=== PATIENT | male | born 1935 | race Caucasian/White ===

== ENCOUNTER 2017-05-04 12:27 | Emergency (ER) | payer OTHER, MEDICAID ==
[~2017-05-04] VITALS: Ht 170.2 cm; Wt 76.0 kg
[2017-05-04] MEDS ORDERED: TETANUS, DIPHTHERIA, PERTUSSIS VAC/PF 0.5ML (>7YR OLD) IM ONE (13:15)
[2017-05-04] MEDS ORDERED: LIDOCAINE HCL/EPINEPHRINE 1%-EPI 1:100,000 50 ML VIAL INFIL ONE ×2 (14:45→15:15)
[2017-05-04] MEDS ORDERED: LIDOCAINE HCL 1% 20ML VIAL (Pyxis) INJ INFIL ONE (15:15)
[2017-05-04 16:30] VITALS: BP 143/71
== END 2017-05-04 16:45 | disposition home or self-care (01) ==
LOC: ER 13:26
DX: S01.81XA Laceration without foreign body of other part of head, initial encounter (principal); W54.0XXA Bitten by dog, initial encounter; Y93.89 Activity, other specified; Y92.89 Other specified places as the place of occurrence of the external cause; Y99.8 Other external cause status
CPT/HCPCS: 12002; 70450; 90471; 90715; 99284; J3490

== ENCOUNTER 2017-05-07 08:58 | Emergency (ER) | payer OTHER, MEDICAID ==
[~2017-05-07] VITALS: Ht 165.1 cm; Wt 73.0 kg
[2017-05-07 09:08] VITALS: BP 154/69
[2017-05-07] MEDS ORDERED: BACITRACIN ZINC OINT UDPKT TOP ONE (09:30)
== END 2017-05-07 10:17 | disposition home or self-care (01) ==
LOC: ER 09:45
DX: Z48.00 Encounter for change or removal of nonsurgical wound dressing (principal)
CPT/HCPCS: 99283